=== PATIENT | female | born 1960 | race Caucasian/White ===

== ENCOUNTER 2016-11-20 11:13 | Outpatient (CLI) | payer OTHER ==
[2015-05-16 15:07] VITALS: O2SAT 94
== END 2016-11-20 11:14 | disposition home or self-care (01) ==
LOC: CONVCARE 11:13
PROVIDERS: ATTEND Orthopaedic Surgery
DX: M25.562 Pain in left knee (principal); M25.462 Effusion, left knee
CPT/HCPCS: 73560

== ENCOUNTER 2017-08-05 08:07 | Day surgery (SDC) | payer OTHER ==
[2017-08-05] MEDS ORDERED: LIDOCAINE HCL 1% MPF SOL ONE ×2 (08:29→08:34)
[2017-08-05] MEDS ORDERED: MIDAZOLAM 2 MG/2 ML SOL ONE (08:34)
[2017-08-05] MEDS ORDERED: PROPOFOL 10 MG/ML EMU IV ONE ×2 (08:34→10:05)
[2017-08-05] MEDS ORDERED: FENTANYL 100MCG/2ML SOL ONE (08:34)
[2017-08-05] MEDS ORDERED: CEFAZOLIN SODIUM 1 GM PDS ONE (09:33)
[2017-08-05] MEDS ORDERED: KETOROLAC TROMETHAMINE 30 MG/ML SOL ONE (10:10)
[2017-08-05 11:21] VITALS: BP 124/70; PULSE 90; RESP 16; TEMP 97.2; O2SAT 94
== END 2017-08-05 11:34 | disposition home or self-care (01) ==
LOC: SURG 08:07
PROVIDERS: ATTEND Orthopaedic Surgery
DX: G56.01 Carpal tunnel syndrome, right upper limb (principal)
CPT/HCPCS: 64721; J0690; J1885; J2001 ×2; J2250; J2704 ×2; J3010

== ENCOUNTER 2017-10-28 16:52 | Outpatient (CLI) | payer OTHER ==
[2017-08-05 11:21] VITALS: O2SAT 94
== END 2017-10-28 16:53 | disposition home or self-care (01) ==
LOC: CONVCARE 16:52
PROVIDERS: ATTEND Orthopaedic Surgery
DX: M25.562 Pain in left knee (principal); M25.462 Effusion, left knee; Z98.890 Other specified postprocedural states
CPT/HCPCS: 73721

== ENCOUNTER 2017-11-18 09:50 | Day surgery (SDC) | payer OTHER ==
[2017-11-18] MEDS ORDERED: LIDOCAINE HCL 1% MPF SOL ONE ×2 (10:15→10:27)
[2017-11-18] MEDS ORDERED: MIDAZOLAM 2 MG/2 ML SOL ONE (10:15)
[2017-11-18] MEDS ORDERED: PROPOFOL 10 MG/ML EMU IV ONE (10:15)
[2017-11-18] MEDS ORDERED: FENTANYL 100MCG/2ML SOL ONE (10:16)
[2017-11-18] MEDS ORDERED: ONDANSETRON HCL 4 MG/2 ML SOL ONE (10:27)
[2017-11-18] MEDS ORDERED: CEFAZOLIN SODIUM 1 GM PDS ONE (10:46)
[2017-11-18 12:11] VITALS: BP 100/63; PULSE 88; RESP 20; TEMP 97; O2SAT 96
== END 2017-11-18 12:35 | disposition home or self-care (01) ==
LOC: SURG 09:50
PROVIDERS: ATTEND Orthopaedic Surgery
DX: G56.02 Carpal tunnel syndrome, left upper limb (principal); E11.9 Type 2 diabetes mellitus without complications
CPT/HCPCS: 82962; J0690; J2250; J2405; J3010; A6402; J2001; J2704